=== PATIENT | male | born 1970 | race African-American/Black ===

== ENCOUNTER 2018-01-09 22:16 | Inpatient (IN) | payer OTHER ==
[~2018-01-09] VITALS: Ht 180.3 cm; Wt 90.7 kg
--- NOTE | 2018-01-09 22:30 | NUR ---
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 STATES HE HAS SOB. DENIES SYNCOPAL EPISODE. DENIES N/V. PLACED ON MONITOR AND PULSE OX. EKG COMPLETED. BREATHING EVEN AND UNLABORED. CP NON-RADIATING.
--- NOTE | 2018-01-09 22:32 | NUR ---
DR NYLA PALMER MD AT BEDSIDE FOR MSE.
[2018-01-09] MEDS ORDERED: ASPIRIN 325 MG TABLET ONE (22:36)
[2018-01-09] MEDS ORDERED: NITROGLYCERIN 0.4 MG/TAB BOTTLE SL ONE ×2 (22:36→22:45)
[2018-01-09] MEDS ORDERED: ASPIRIN 325 MG TABLET PO ONE (22:45)
--- NOTE | 2018-01-09 22:49 | NUR ---
PT RECEIVED NITRO SL X 1. AFTER 5 MIN, PT DENIES CHEST TIGHTNESS/PAIN AT THIS TIME.
--- NOTE | 2018-01-09 22:50 | NUR ---
XRAY AT PT BEDSIDE.
[2018-01-09 22:54] LABS: BASOPHILS # (AUTO) 0.1 K/uL (0.0-8.0); BASOPHILS % (AUTO) 0.7 % (0.0-2.0); EOSINOPHILS # (AUTO) 0.2 K/uL (0.0-0.7); HEMATOCRIT 36.2 % (36.7-47.1); HEMOGLOBIN 12.7 g/dL (12.5-16.3); LYMPHOCYTES # (AUTO) 2.7 K/uL (20.0-40.0); LYMPHOCYTES % (AUTO) 31.7 % (20.5-51.5); MEAN CORPUSCULAR HEMOGLOBIN 27.9 uug (23.8-33.4); MEAN CORPUSCULAR HGB CONC 35 g/dL (32.5-36.3); MEAN CORPUSCULAR VOLUME 79.3 fL (73.0-96.2); MONOCYTES # (AUTO) 0.6 K/uL (2.0-10.0); MONOCYTES % (AUTO) 7.3 % (0.0-11.0); NEUTROPHILS % (AUTO) 58.3 % (38.5-71.5); PLATELET COUNT (AUTO) 234 K/uL (152-348); RED BLOOD CELL COUNT(AUTO) 4.56 MIL/uL (4.06-5.63); WHITE BLOOD COUNT (AUTO) 8.6 K/uL (3.6-10.2)
[2018-01-09] MEDS ORDERED: NITROGLYCERIN OINT 1 GM PACKET TP ONE ×2 (23:01→23:30)
[2018-01-09 23:16] LABS: CREATININE 1.1 mg/dL (0.6-1.3); POTASSIUM 3.3 mmol/L (3.5-5.1)
[2018-01-09 23:29] LABS: BILIRUBIN,DIRECT 0.1 mg/dL (0.0-0.2); BILIRUBIN,TOTAL 0.3 mg/dL (0.2-1.0); TOTAL PROTEIN, SERUM 6.8 g/dL (6.4-8.2)
[2018-01-09] MEDS ORDERED: IV NORMAL SALINE 1000 ML BAG IV ONE (23:45)
[2018-01-09] MEDS ORDERED: LABETALOL HCL 100 MG/20 ML VIAL IV ONE (23:45)
[2018-01-09] MEDS ORDERED: LABETALOL HCL 100 MG/20 ML VIAL ONE (23:46)
--- NOTE | 2018-01-09 23:54 | NUR ---
ACCOMPANYING PT TO RADIOLOGY FOR CTA ANGIO. CONSENT OBTAINED. NO DISTRESS NOTED.
[2018-01-09] MEDS ORDERED: IV NORMAL SALINE 100 ML ONE (23:55)
[2018-01-09] MEDS ORDERED: IOHEXOL 350 100 ML INFUS..BTL ONE (23:55)
--- NOTE | 2018-01-10 00:36 | NUR ---
PT RESTING IN BED W/ EYES CLOSED. NO SIGNS OF DISTRESS NOTED.
[2018-01-10] MEDS ORDERED: POTASSIUM BICARBONATE/CIT AC 25 MEQ TABLET.EFF ONE (00:58)
[2018-01-10] MEDS ORDERED: POTASSIUM BICARBONATE/CIT AC 25 MEQ TABLET.EFF PO ONE (01:00)
[2018-01-10] MEDS ORDERED: IV NS 1000 ML 1,000 ML IV PRN (01:18)
[2018-01-10] MEDS ORDERED: MORPHINE SULFATE 2 MG/1 ML DISP.SYRIN IV PRN (01:30)
[2018-01-10] MEDS ORDERED: Z GUARD REMEDY PASTE 57 GM TUBE TOP PRN (01:30)
[2018-01-10] MEDS ORDERED: ACETAMINOPHEN 325 MG TABLET PO PRN (01:30)
[2018-01-10] MEDS ORDERED: ENOXAPARIN SODIUM 40 MG/0.4 ML DISP.SYRIN SQ SCH (01:30)
[2018-01-10] MEDS ORDERED: hydrALAZINE HCL 25 MG TABLET PO PRN (01:30)
[2018-01-10] MEDS ORDERED: MAGNESIUM HYDROXIDE 30 ML LIQUID UDC PO PRN (01:30)
[2018-01-10] MEDS ORDERED: ONDANSETRON 4 MG/2 ML VIAL IV PRN (01:30)
[2018-01-10] MEDS ORDERED: HYDROCODONE/APAP 5-325MG TABLET PO PRN (01:30)
--- NOTE | 2018-01-10 01:35 | NUR ---
REPORT GIVEN TO IVIS HERNANDEZ.
--- NOTE | 2018-01-10 02:18 | NUR ---
Pt. admitted to TELE, under care of Dr. KING Belongs List completed
[2018-01-10 02:24] LABS: *AMPHETAMINE, URINE NEGATIVE (NEGATIVE); *BARBITURATE, URINE NEGATIVE (NEGATIVE); *CANNABINOID, URINE NEGATIVE (NEGATIVE); *COCCAINE, URINE POSITIVE (NEGATIVE); *OPIATE, URINE NEGATIVE (NEGATIVE); *PHENCYCLIDINE SCREEN,URINE NEGATIVE (NEGATIVE)
[2018-01-10 02:30] VITALS: BP 117/69
--- NOTE | 2018-01-10 03:00 | NUR ---
admitted pt ,alert,oriented,ambulatory but right leg limping due to pain in the knee s/p fall.skin intact and dry, denies any chest pain upon arrival to floor.vss,afebrile. sinus rhythm on monitor.started iv fluids, pt back to sleep.
[2018-01-10 05:16] VITALS: BP 106/70
[2018-01-10] MEDS ORDERED: MORPHINE SULFATE 4 MG/1 ML DISP.SYRIN IV PRN (07:45)
--- NOTE | 2018-01-10 07:49 | NUR ---
RECEIVED SHIFT REPORT FROM SCALE ADJUSTER NURSE. PATIENT RESTING COMFORTABLY IN BED AT THIS TIME. NO S/S OF DISTRESS, STABLE CONDITION. PATIENT DOES NOT COMPLAIN OF CHEST PAIN AT THIS TIME. AMBULATORY. ALERT/ORIENTED. WILL CONTINUE TO MONITOR. CALL LIGHT WITHIN REACH.
[2018-01-10 09:00] VITALS: BP 115/75
[2018-01-10] MEDS ORDERED: ASPIRIN 81 MG TAB.CHEW PO SCH (09:00)
--- NOTE | 2018-01-10 11:02 | NUR ---
PATIENT RESTING COMFORTABLY IN BED AT THIS TIME. NO COMPLAINTS OF CHEST PAIN. NEW IV-ACCESS STARTED TO DUE LEAKAGE FROM PREVIOUS IV-SITE. IVF CONTINUED. STABLE CONDITION AT THIS TIME, NO S/S OF DISTRESS. SINUS RHYTHM ON HEMATOLOGY TECHNOLOGIST.
[2018-01-10 11:46] VITALS: BP 109/65
[2018-01-10] MEDS ORDERED: NITROGLYCERIN 0.4 MG/TAB BOTTLE SL PRN (13:45)
[2018-01-10 15:43] VITALS: BP 130/72
--- NOTE | 2018-01-10 17:30 | NUR ---
PATIENT SEEN BY [employer] PROGRAMMER, [employer] PROGRAMMER NOTIFIED DR. CHESTER AND PATIENT IS BEING DISCHARGED. DISCHARGE DOCUMENTATION COMPLETED, DISCHARGE PACKET SIGNED BY PATIENT. DISCHARGE INSTRUCTIONS/EDUCATION PROVIDED. VITAL SIGNS STABLE. STABLE CONDITION NO S/S OF DISTRESS. NO COMPLAINTS OF CHEST PAIN VERBALIZED BY PATIENT. IV-ACCESS DISCONNECTED, ID BAND TAKEN OFF, TELEMETRY MONITORING DISCONNECTED AND RETURNED.
--- NOTE | 2018-01-10 18:17 | NUR ---
PATIENT DISCHARGED AT THIS TIME. LEFT MED-SURG FLOOR IN SAFE CONDITION. PATIENT'S FORM OF TRANSPORTATION IS SELF. PARKED HIS CAR IN PARKING LOT.
[2018-01-10] MEDS ORDERED: ATORVASTATIN 20 MG TABLET PO SCH (21:00)
[2018-01-11] MEDS ORDERED: ENOXAPARIN SODIUM 40 MG/0.4 ML DISP.SYRIN SQ SCH (09:00)
== END 2018-01-10 18:15 | disposition home or self-care (01) | DRG 203 ==
LOC: ER 22:19 → TELE 01-10 02:04
PROVIDERS: ADMIT Internal Medicine; ATTEND Internal Medicine
DX: R07.89 Other chest pain (principal); F14.10 Cocaine abuse, uncomplicated; E87.6 Hypokalemia; D64.9 Anemia, unspecified; X50.9XXA Other and unspecified overexertion or strenuous movements or postures, initial encounter; Y93.B2 Activity, push-ups, pull-ups, sit-ups; Y92.39 Other specified sports and athletic area as the place of occurrence of the external cause; Y99.0 Civilian activity done for income or pay
CPT/HCPCS: 36415; 70030-TC; 71045; 71275; 80307; 83735; 84443; 85025; 85730; 93005; 93307; A4663; J1650; J3490; J7030; Q9967